=== PATIENT | male | born 1975 | race Caucasian/White ===

== ENCOUNTER 2016-12-20 16:22 | Emergency (ER) | payer OTHER ==
[2016-12-20 17:22] VITALS: BP 153/104
--- NOTE | 2016-12-20 17:32 | UC ---
Hand/Wrist HPI - History Of Current Complaint Stated Complaint: RIGHT WRIST INJURY Hx Obtained From: Patient Onset/Duration: Sudden Onset - was lifting 150-170 lb object with right arm and bringing it across in front of him when he heard a "snap" and had immediate wrist pain. Didn't drop the object., Worse Since - onset with right wrist pain. Severity Initially: Moderate Severity Currently: Moderate Character Of Pain: Sharp, Aching, Throbbing Aggravating Factor(s): Movement, Lifting, Flexion, Extension, Pulling Alleviating: Rest Associated Signs And Symptoms: Positive: Weakness, Numbness/Tingling - around the pinky finger. - Risk Factors Compartment Syndrome Risk Factors: Pain - Allergies/Home Medications Allergies/Adverse Reactions: Allergies Allergy/AdvReac Type Severity Reaction Status Date / Time No Known Allergies Allergy Verified 12/20/16 17:22 Home Medications: Home Medications NK [No Home Medications Reported] 12/20/16 [History Confirmed 12/20/16] PMH/Surg Hx/FS Hx/Imm Hx Previously Healthy: Yes Endocrine History Of: Denies: Diabetes Cardiovascular History Of: Denies: Hypertension Respiratory History Of: Denies: COPD - Family History Known Family History: Positive: Diabetes Negative: Cardiac Disease, Hypertension - Social History Occupation: Employed Full-time Lives: With Family Smoking Status (MU): Heavy Every Day Tobacco Smoker Have You Smoked in the Last Year: Yes Review of Systems Musculoskeletal: Arthralgia - Right wrist All Other Systems Reviewed And Are Negative: Yes Physical Exam Triage Information Reviewed: Yes Appearance: Well-Appearing, No Pain Distress, Well-Nourished Vital Signs Reviewed: Yes Eyes: Positive: Conjunctiva Clear Neck exam: Normal Respiratory Exam: Normal Cardiovascular Exam: Normal Musculoskeletal: Positive: Strength Limited @ - wrist 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 Neurological: Positive: Other: - decreased sharp and light touch 5th finger. Psychological Exam: Normal Skin Exam: Normal Hand/Wrist Course/Dx - Differential Dx/Diagnosis Differential Diagnosis/HQI/PQRI: Sprain, Strain, Tendonitis, Tenosynovitis Provider Diagnoses: Right wrist sprain. Ulnar neuritis Discharge - Discharge Plan Condition: Stable Disposition: HOME Patient Education Materials: Wrist Sprain (ED) Forms: *Work Release Referrals: Orestes Venegas [Primary Care Provider] - Ade Gimenez MD [Medical Doctor] - 1 Day (wrist injury with ulnar nerve injury.) Additional Instructions: Use the splint for comfort.
--- NOTE | 2016-12-20 17:49 | RAD ---
INDICATION: Right wrist pain COMPARISON: None TECHNIQUE: AP, lateral, and oblique views were obtained. FINDINGS: The bony structures, joint spaces, and soft tissues are normal for age. IMPRESSION: NEGATIVE EXAMINATION.
== END 2016-12-20 18:26 | disposition home or self-care (01) ==
LOC: UCCORT 16:22
DX: S63.501A Unspecified sprain of right wrist, initial encounter (principal); X50.0XXA Overexertion from strenuous movement or load, initial encounter; Y93.89 Activity, other specified; Y92.9 Unspecified place or not applicable; G56.21 Lesion of ulnar nerve, right upper limb; F17.210 Nicotine dependence, cigarettes, uncomplicated
CPT/HCPCS: 99202; G0463

== ENCOUNTER 2017-12-06 06:21 | Day surgery (SDC) | payer OTHER ==
[~2017-12-06 06:21] MED LIST: Buffered Lidocaine 0.9% SYRIN* 5 ML/SYR SYRINGE INTRADERM ONE; Famotidine TAB* 20 MG PO ONE
[2017-12-06] MEDS ORDERED: Famotidine TAB* 20 MG ONE (06:30)
[2017-12-06] MEDS ORDERED: Buffered Lidocaine 0.9% SYRIN* 5 ML/SYR SYRINGE ONE (06:31)
[2017-12-06] MEDS ORDERED: ceFAZolin 2 GM PREMIX (*) 2 GM/50 ML BAG IVPB ONE (06:31)
[2017-12-06] MEDS ORDERED: fentaNYL* 50 MCG/ML 2 ML VIAL (100 MCG VIAL) ONE ×2 (07:36→09:00)
[2017-12-06] MEDS ORDERED: Midazolam* 1 MG/ML 5 ML VIAL (5 MG) ONE (07:36)
[2017-12-06] MEDS ORDERED: ceFAZolin 1 GM in Dextrose (*) 1 GM/50 ML BAG IVPB ONE (07:36)
[2017-12-06] MEDS ORDERED: KETAMINE HCL* 50 MG/ML 10 ML VIAL ONE (07:57)
[2017-12-06] MEDS ORDERED: Propofol* 10 MG/ML 20 ML BTL IV PUSH ONE (08:04)
[2017-12-06] MEDS ORDERED: DiMENhydriNATE IV* 50 MG/ML VIAL ONE (08:04)
[2017-12-06] MEDS ORDERED: Dexamethasone IV* 4 MG/ML 1 ML (4 MG) ONE (08:04)
[2017-12-06] MEDS ORDERED: Ondansetron INJ* 2 MG/ML VIAL ONE (08:04)
[2017-12-06] MEDS ORDERED: Ketorolac INJ* 30 MG/ML 1 ML VIAL ONE (08:04)
[2017-12-06] MEDS ORDERED: Lidocaine 2% PF * 5 ML VIAL ONE (08:04)
[2017-12-06] MEDS ORDERED: Bupivacaine 0.25% SDV* 30 ML ONE (08:43)
[2017-12-06] MEDS ORDERED: Acetaminophen TAB* 325 MG PO PRN (08:51)
[2017-12-06] MEDS ORDERED: Naloxone* 0.4 MG/ML 1 ML VIAL IV PRN (08:51)
[2017-12-06] MEDS ORDERED: DiMENhydriNATE IV* 50 MG/ML VIAL IV PUSH PRN (08:51)
[2017-12-06] MEDS ORDERED: HYDROmorphone INJ* 2 MG/ML CARPUJECT SYRINGE ONE (11:45)
[2017-12-06] MEDS: HYDROmorphone INJ* 1 MG/ML CARPUJECT SYRINGE IV PRN ×2 (11:46→11:51)
[2017-12-06] MEDS ORDERED: HYDROcodone/ACETAMIN 5-325 MG* 1 TAB ONE (12:00)
[2017-12-06 12:22] VITALS: BP 143/98
--- NOTE | 2017-12-07 07:32 | RAD ---
INDICATION: Right wrist triangular fibrocartilage complex repair. COMPARISON: Comparison is made with a prior MRI of the wrist from August 27, 2017. TECHNIQUE: 11 seconds of intermittent fluoroscopic guidance were provided and 11 spot films of the right wrist were obtained in the operating room. FINDINGS: The films and measured a K wire which projects over the medial aspect of the distal radius. There appears be a small amount of air within the distal radial ulnar joint consistent with the patient's surgery. IMPRESSION: INTRAOPERATIVE CONTROL FILMS. CPT II Codes: G9500
--- NOTE | 2017-12-07 11:35 | OP ---
DATE OF OPERATION: 12/06/17 - [facility] DATE OF : 77. SURGEON: Ethan Montalvo MD. PROVIDER ENGAGEMENT EXECUTIVE: DAVI Deutsch. An physician assistant primary care was needed for the procedure to aid in positioning of the arm and retraction. ANESTHESIOLOGIST: Dr. Jacobs. ANESTHESIA: General. PRE-OP DIAGNOSIS: Right wrist triangular fibrocartilage complex tear with distal radial ulnar joint instability. POST-OP DIAGNOSIS: Right wrist triangular fibrocartilage complex tear with distal radial ulnar joint instability. OPERATIVE PROCEDURE: 1. Right wrist arthroscopic debridement of TFCC tear. 2. Exam under anesthesia of the right wrist DRUJ stability. 3. Open reconstruction of the distal radial ulnar ligaments for DRUJ stability with palmaris tendon autograft. INDICATIONS: Danny is 42 years old. He had a prior TFCC surgery by Dr. Hairston. This was a repair. His symptoms never improved. I saw him in the office and he had gross instability of the DRUJ. The articular surfaces looked good. I talked to him about examining the wrist under anesthesia and if my arthroscopic findings and my exam findings concur, then I would reconstruct the distal radioulnar ligaments with a palmaris tendon autograft. He understands the risks including the risks of persistent pain, the need for further surgery, infection, wound problems and he wishes to proceed. EBL: 10 mL. COMPLICATIONS: None. FINDINGS: On exam, DRUJ was grossly unstable. Arthroscopic findings confirmed the absence of central perforation. DESCRIPTION OF PROCEDURE: Danny was seen in the preoperative holding area. The correct side, site, and procedure were identified. We came back to the operating room and the arm was prepped and draped in the usual fashion. A time- out was performed. I began by examining the DRUJ once he was anesthetized. It was grossly unstable particularly anteriorly. The DRUJ was unstable in neutral pronation and supination. The arm was then prepped and placed in the Acumed Traction [place]. The appropriate traction was set. The arm was then exsanguinated with the Esmarch and the tourniquet was inflated to 275 mmHg. I then developed a 3-4 portal in the standard fashion utilizing the 11 blade followed by the mosquito followed by the trocar. The scope was introduced. The articular surfaces and the radial sided structures all looked good. I came ulnarly. There was no central TFCC perforation. No large peripheral tear was identified either. It did seem unstable when I probed it. I did develop a 6R portal in a standard fashion and the probe was introduced through that portal. There was a vein at the margin of the TFCC and some synovitis. I brought in the shaver and debrided all of that back until everything was clean, smooth, healthy edges. At this point, I withdrew the arthroscopic equipment and decided we would proceed with the distal radioulnar ligament reconstruction. Utilizing his prior dorsal incision, I extended it proximally and distally and dissection was carried down to the extensor retinaculum. Full-thickness flaps were raised off of this. The fifth dorsal compartment was then opened. The EDM tendon was released and retracted ulnarly. I made an arthrotomy through the DRUJ and this was teed back distally proximal through the TFCC. The subperiosteal dissection exposed the dorsal ulnar aspect of the distal radius. I then made an incision over the volar ulnar wrist just over the volar aspect of DRUJ. The interval between the ulnar neurovascular bundle and the flexor tendon was bluntly opened and dissection took us down to the pronator quadratus. At this point, I released a bit of the soft tissue on the palmar aspect and ulnar aspect of the distal radius. I then used the guidewire for a 3.0 cannulated drill bit and this was placed from the proximal through the joint line and about 5 mm radial to the DRUJ. Once I had the guidewire in appropriate position, I made a dorsal to volar drill hole through the distal radius over the guidewire. I then brought in a 3.5 mm drill bit and drilled up to a slightly larger hole. I then turned my attention to harvesting the tendon graft. A 1-cm transverse incision was made over the palmaris tendon just proximal to the wrist flexion crease. The tendon was delivered up into the wound. The adhesions were released. The tendon was released distally. A tendon stripper was used to release at the tendon at the musculotendinous junction. I then debrided off the muscular remnants and I tubularized the proximal aspect of the tendon and secured it with a 4-0 Ethibond suture. I placed a couple of 3.0 Ethibond sutures as whip stitches into the either end of the tendon graft. The tendon was then delivered using HeImpulseSave suture passer from dorsal to proximal. I then created a bone tunnel using a 3.0 cannulated drill bit from the ulnar aspect of the ulnar shaft up and exiting out the fovea. Once I had it drilled with a 3.0 cannulated drill, but I over drill that with a 4.0 drill bit. I then using Hewson suture passer passed both tails of my sutures through that bone tunnel and out the ulnar side of the shaft. Please note that I had created a small 2 cm ulnar incision and dissected straight down to the ulnar aspect of the distal ulna and then raised subperiosteal flaps there. With the tendons delivered through the bone tunnel, I used the Hewson suture passer to pass the palmar limb of the tendon graft around the palmar aspect of the distal ulna. I then weaved this through my other limb of the tendon graft and the reconstruction was tensioned and then sutured with multiple figure-of- eight 0 FiberWire sutures. Prior to securing the tension on the tendon graft, I had reduced and compressed the DRUJ and secured it with a 6.2 K-wire across all four cortices starting at the ulna and extending up the distal radius radially. Once the graft was tensioned and secured, I irrigated everything out , I closed the arthrotomy of the DRUJ with 4-0 Ethibond suture. The extension retinaculum was closed with 4.0 Ethibond suture. The EDM tendon was left transposed. The skin was closed with 4.0 nylon. Overall, the 6.2 K-wire was bent and clipped and left out of the skin. The operative sites were all infiltrated with 0.25% plain Marcaine. The wounds were dressed with Xeroform, 4x4s, sterile Webril and a sugar-tong splint was applied. The patient was then woken up and taken to the recovery room in stable condition. [id number]/[facility] #: [id number] STEFAN
== END 2017-12-06 12:44 | disposition home or self-care (01) ==
LOC: OR 06:21
PROVIDERS: ATTEND Orthopaedic Surgery Hand Surgery
DX: M24.831 Other specific joint derangements of right wrist, not elsewhere classified (principal); S63.011A Subluxation of distal radioulnar joint of right wrist, initial encounter; M25.331 Other instability, right wrist; F17.200 Nicotine dependence, unspecified, uncomplicated; G47.33 Obstructive sleep apnea (adult) (pediatric); E66.9 Obesity, unspecified; X50.0XXA Overexertion from strenuous movement or load, initial encounter; Y92.89 Other specified places as the place of occurrence of the external cause; Y99.0 Civilian activity done for income or pay
CPT/HCPCS: 76001; A9270-GY; C1769; J0690; J1100; J1170; J1240; J1885; J2250; J2405; J2704; J3010

== ENCOUNTER 2019-03-03 08:53 | Emergency (ER) | payer OTHER ==
[2019-03-03 09:10] VITALS: BP 144/88
--- NOTE | 2019-03-03 10:11 | UC ---
Skin Complaint HPI - HPI Summary HPI Summary: Mr. Pedroza started with a sore area on his buttocks several days ago but it became much worse yesterday. He has a hard time sitting or for that matter standing and walking. This never happened before. He denies any fever but he does state that he's had chills and achy muscles. - History of Current Complaint Chief Complaint: UCSkin Time Seen by Provider: 03/03/19 09:38 Stated Complaint: SKIN CONCERN Hx Obtained From: Patient Onset/Duration: Gradual Onset Skin Exposure Onset/Duration: Days Ago Timing: Constant Onset Severity: Mild Current Severity: Severe Pain Intensity: 8 Location: Discrete - Right buttock Alleviating Factor(s): Nothing Associated Signs & Symptoms: Positive: Chills, Tenderness - Myalgias - Allergy/Home Medications Allergies/Adverse Reactions: Allergies Allergy/AdvReac Type Severity Reaction Status Date / Time oxycodone AdvReac DIFFICULTY Verified 03/03/19 09:03 SWALLOWING WATER Home Medications: Home Medications Acetaminophen 650 mg PO ONCE PRN 03/03/19 [History Confirmed 03/03/19] PMH/Surg Hx/FS Hx/Imm Hx Previously Healthy: Yes - Surgical History Surgical History: Yes Surgery Procedure, Year, and Place: RIGHT WRIST SURGERY-01/2017-[facility] [place]. Right wrist surgery 12/06/17. pin removal R wrist. - Family History Known Family History: Positive: Diabetes Negative: Cardiac Disease, Hypertension - Social History Alcohol Use: None Substance Use Type: None Smoking Status (MU): Heavy Every Day Tobacco Smoker Type: Cigarettes Amount Used/How Often: 1/2 PPD plus 1 can daily- chew Have You Smoked in the Last Year: Yes Review of Systems All Other Systems Reviewed And Are Negative: Yes Constitutional: Positive: Chills, Fatigue Skin: Positive: Other - Painful Gastrointestinal: Positive: Negative Genitourinary: Positive: Negative Physical Exam - Summary Physical Exam Summary: He is nontoxic in appearance and afebrile but he is tachycardic and looks uncomfortable. Triage Information Reviewed: Yes Appearance: Pain Distress Vital Signs: Initial Vital Signs Temp 97.9 F 03/03/19 09:04 Pulse 124 03/03/19 09:04 Resp 17 03/03/19 09:04 BP 144/88 03/03/19 09:04 Pulse Ox 97 03/03/19 09:04 Vital Signs Reviewed: Yes Abdominal Exam: Normal Skin Exam: Normal - He is erythematous and indurated over a large portion of his medial right buttock. I can't detect any fluctuant area. Course/Dx - Course Course Of Treatment: He clearly has a cellulitis and probably an abscess on his right buttock. The area is so large and indurated I can't tell if it originated at a pilonidal gland. He may indeed have a perianal abscess or fistula which I cannot sleep. I recommended to him that he come to the emergency department at this time where he can be imaged, have his labs checked and receive IV antibiotics and fluids for his tachycardia. He agreed to this. - Diagnoses Provider Diagnosis: Perianal abscess Discharge - Sign-Out/Discharge Documenting (check all that apply): Patient Departure All imaging exams completed and their final reports reviewed: No Studies - Discharge Plan Condition: Stable Disposition: HOME-RECOMMEND TO ED Patient Education Materials: Rectal Abscess (ED) Referrals: Orestes Venegas [Primary Care Provider] - Additional Instructions: You need a more comprehensive workup[ than we can provide here. I recommend that he go to the emergency department promptly at this time. - Billing Disposition and Condition Condition: STABLE Disposition: Home-Recommend to ED
== END 2019-03-03 10:16 | disposition home health service (06) ==
LOC: UCCORT 08:53
DX: R42 Dizziness and giddiness (principal); I10 Essential (primary) hypertension; I25.2 Old myocardial infarction; Z87.891 Personal history of nicotine dependence
CPT/HCPCS: 99212; G0463